=== PATIENT | female | born 1985 | race African-American/Black ===

== ENCOUNTER 2018-05-14 01:37 | Emergency (ER) | payer BC ==
[2018-05-14 02:44] LABS: Specific Gravity 1.021 (1.002-1.036)
[2018-05-14 02:47] LABS: Pregnancy Test - Urine (BHCG) Negative (Negative); Pregu Control Background? CLEAR/WHITE (CLR/WHITE); Pregu Control Bar Appear? YES (CONTROL BAR)
[2018-05-14] MEDS ORDERED: HYDROcodone/Acetaminophen 5/325 mg Tablet ONE (03:01)
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
== END 2018-05-14 04:07 | disposition home or self-care (01) ==
LOC: ERS 01:37
DX: R22.0 Localized swelling, mass and lump, head (principal); Y04.0XXA Assault by unarmed brawl or fight, initial encounter
CPT/HCPCS: 70450; 70486; 72125; 81025